=== PATIENT | female | born 1965 | race Caucasian/White ===

== ENCOUNTER 2016-07-09 15:17 | Observation (INO) | payer OTHER ==
--- NOTE | 2016-07-09 15:22 | EDPHY ---
H & P HPI/ROS: CHIEF COMPLAINT: Back pain. HISTORY OF PRESENT ILLNESS: The patient is a 50-year-old female who presents via EMS for severe lower left back pain. She was scheduled for an epidural injection today at the surgery center. She was in so much pain that she had to call the paramedics to help her into the car so that she could make it to the surgery center. When she arrived the decision was made to transport her to the hospital for treatment of intractable back pain, rather than perform the epidural injection. She has had low back pain for 3 or 4 months. She initially visited her doctor a week ago and was started on a course of oral steroids. She had an MRI taken 2 days ago that showed a disc protrusion at L3. The pain today radiates around to her groin and down her left leg. It is severe in nature and constant. It is worsened with movement. Her reports that she was unable to make it to the bathroom multiple times last night and urinated in diapers in bed. She has not had a bowel movement for at least 4 days. She denies fever. She has no history of IV drug use. She has not had recent trauma. REVIEW OF SYSTEMS: A ten point review of systems was performed and is negative with the exception of the items mentioned in the HPI. Source: Patient Exam Limitations: No limitations - Social History Additional Social History: She lives with her . 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 - Physical Exam Exam: General Appearance: Alert. Vital signs reviewed. BP 138/76. Eyes: Pupils equal and round, no conjunctival injection, no discharge. Anicteric. ENT, Mouth: Mucous membranes are moist, no oropharyngeal erythema or edema. Neck: No lymphadenopathy, supple. Respiratory: Lungs are clear to auscultation; no wheezes, rales, or rhonchi. Cardiovascular: Regular rate and rhythm; no murmur, rub, or gallop. Gastrointestinal: Abdomen is soft and nontender, no masses or organomegaly, bowel sounds normal. Rectal exam: Normal rectal tone. Skin: Warm and dry, no rashes on exposed skin, normal color. Back: Nontender to palpation over the thoracolumbar spine. No palpable muscle spasm. Extremities: No lower extremity edema, no calf tenderness or swelling. Neurological: She is alert and oriented. Sensation is intact to light touch over both lower extremities. 5/5 plantar and dorsiflexion and EHL bilaterally. Further strength testing limited due to pain. Psychiatric: Normal affect. Constitutional: Initial Vital Signs Temperature (C) 36.4 C 07/09/16 15:41 Heart Rate 72 07/09/16 15:41 Respiratory Rate 16 07/09/16 15:41 Blood Pressure 138/76 H 07/09/16 15:41 O2 Sat (%) 96 07/09/16 15:41 O2 Delivery Mode Nasal Cannula O2 (L/minute) 2 Allergies/Adverse Reactions: No Known Allergies Allergy (Unverified 08/30/10 18:43) Home Medications: Medication Instructions Recorded Aspirin EC [Aspirin EC 81 mg (*)] 81 mg PO DAILY 07/09/16 Cyclobenzaprine [Flexeril 10 MG 10 - 20 mg PO DAILY 07/09/16 (*)] Escitalopram Oxalate [Lexapro] 20 mg PO DAILY 07/09/16 Lisdexamfetamine Dimesylate 70 mg PO DAILY 07/09/16 [Vyvanse] Meloxicam 15 mg PO DAILY 07/09/16 lamOTRIGine [Lamotrigine] 200 mg PO DAILY 07/09/16 oxyCODONE/APAP 5/325 [Percocet 1 - 2 tab PO Q6H PRN 07/09/16 5/325 (*)] predniSONE [Prednisone] 20 mg PO DAILY 07/09/16 Medical Decision Making ED Course/Re-evaluation: This is a 50-year-old female who has been undergoing an outpatient evaluation of her worsening back pain. She was scheduled for an epidural injection today but was unable to have this procedure performed due to her extreme pain. I do not find signs of central cord syndrome on evaluation. She had an MRI performed within the past week and brings the CD with her. I am not recommending further imaging at this point in time. She will be seen in consultation by Neurosurgery. 1616: Consulted with Dr. Saavedra, hospitalist. He accepts admission. Dilaudid IV administered for pain. Differential Diagnosis: Back pain including but not limited to muscular pain, herniated disc, spine fracture, intra-abdominal causes and urinary tract infection. - Data Points Medications Given: Discontinued Medications Diazepam (Valium Injection) 10 mg IVP EDNOW ONE Stop: 07/09/16 17:07 Last Admin: 02/09/17 17:23 Dose: 10 mg Hydromorphone HCl (Dilaudid) 0.5 mg IVP EDNOW ONE Stop: 07/09/16 16:21 Last Admin: 07/09/16 16:31 Dose: 0.5 mg Hydromorphone HCl (Dilaudid) 0.5 mg IVP EDNOW ONE Stop: 07/09/16 16:48 Last Admin: 07/09/16 16:59 Dose: 0.5 mg Methylprednisolone Sodium Succinate (Solu-Medrol) 125 mg IVP EDNOW ONE Stop: 07/09/16 17:07 Last Admin: 07/09/16 17:52 Dose: 125 mg Departure - Departure Disposition: [facility] Inpatient Acute Clinical Impression: Back pain Qualifiers: Back pain location: low back pain Chronicity: acute Back pain laterality: left Sciatica presence: with sciatica Sciatica laterality: sciatica of left side Qualifier Code: (M54.42) Lumbago with sciatica, left side Condition: Fair Report Scribed for: Charlene Villalpando Report Scribed by: Chris Bailey Date of Report: 07/09/16 Time of Report: 15:28 Physician Review and Approval Statement: 07/09/16 15:22 Portions of this note were transcribed by the medical sales. I, Dr. Charlene Villalpando, personally performed the history, physical exam, and medical decision- making; and confirmed the accuracy of the information in the transcribed note.
[2016-07-09] MEDS ORDERED: HYDROmorphONE/DILAUDID 1 MG/ML SYR IVP ONE ×2 (16:20→16:47)
[2016-07-09] MEDS ORDERED: methylPREDNISolone SOD SUCC 125 MG/2 ML VIAL IVP ONE (17:06)
[2016-07-09] MEDS ORDERED: DIAZEPAM 10 MG/2 ML SYR IVP ONE (17:06)
[2016-07-09] MEDS ORDERED: ONDANSETRON DISINTEGRATING 4 MG TAB PO PRN (17:07)
[2016-07-09] MEDS ORDERED: LORazepam 0.5 MG TAB PO PRN (17:07)
[2016-07-09] MEDS ORDERED: HYDROmorphONE/DILAUDID 1 MG/ML SYR IVP PRN (17:07)
[2016-07-09] MEDS ORDERED: PROMETHAZINE HCL 25 MG/ML INJ IVP PRN (17:07)
[2016-07-09] MEDS ORDERED: ONDANSETRON 4 MG/2 ML VIAL IVP PRN (17:07)
[2016-07-09] MEDS ORDERED: DIAZEPAM 10 MG/2 ML SYR IVP PRN (17:12)
--- NOTE | 2016-07-09 17:51 | GHP ---
[f rep st] HISTORY AND PHYSICAL DATE OF ADMISSION: 07/09/2016 HISTORY OF PRESENT ILLNESS: Ms Lujan is a pleasant 50-year-old female with a history of low back pain that has been going on for about 3 or 4 weeks, got acutely worse a couple of weeks ago when she was doing some jump squats in preparation to be fit for cycling. She has no history of cancer, no fe chica, chills or weight loss. She does have some night sweats, but is currently going through menopaus e. As her pain was getting worse, she saw a spine physician who initially prescribed Medrol Dosepak as w ell as meloxicam, and then subsequently Flexeril. All of these were with minimal to no improvement a nd pain is actually getting worse. The last 2 days, she has essentially been bed-bound. 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 She has been in so much pain she has be en lying in bed, using diapers to urinate. She has had no fecal or urinary incontinence. She went t o get a spine injection today and was in so much pain they called an ambulance and sent her here. No injection drug use. No previous back surgery. REVIEW OF SYSTEMS: Complete 10-point review of systems conducted, negative except as in the HPI. PAST MEDICAL HISTORY: 1. Depression. 2. Low back pain. 3. Attention deficit hyperactivity disorder. ALLERGIES: No known drug allergies. HOME MEDICATIONS: Strattera, prednisone, Percocet, lorazepam, Flexeril, aspirin, Lexapro. FAMILY HISTORY: Negative for cancer. SOCIAL HISTORY: Rare alcohol. No tobacco. 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 Lives in [place]. PHYSICAL EXAM: VITAL SIGNS: Temp 36.4, blood pressure 138/76, pulse 72, breathing 16 times a minute , 96% on 4 L. GENERAL: No acute distress. Lying flat. HEENT: Sclerae anicteric. Oropharynx hernesto r. Mucous membranes moist. NECK: Supple without lymphadenopathy or JVD. LUNGS: Clear to ausculta tion bilaterally. HEART: S1, S2. ABDOMEN: Soft, nontender, nondistended. LOWER EXTREMITIES: Wit hout edema. Calves nontender. MUSCULOSKELETAL: Low back exam shows pain over her left lower back. She has a fair amount of pain radiating around her groin. She is really unable to test left leg fle xion secondary to pain, but there is some movement. Dorsiflexion and plantarflexion are intact. Sen sation is intact bilaterally. Per the ER, she had normal rectal tone. LABS: There are no labs. She has an MRI on a disc. I have discussed the case with Dr. Jose ziegler Neurosurgery as well as Dr. Charlene Villalpando. ASSESSMENT/PLAN: This is a 50-year-old female with low back pain and herniated disc. 1. Low back pain with radicular symptoms. This is consistent with the presentation of herniated L3 disc. Does not appear to be a neurosurgical emergency. At this point in time, I have written her fo r Valium. I will give her a dose of Solu-Medrol. I have called Neurosurgery to see her. I have pro vided her with oral pain medicine. 2. Attention deficit hyperactivity disorder. We will continue her Strattera when reconciled. 3. Prophylaxis. Pharmacologic prophylaxis is indicated, but will hold given the possibility of ster oid injection in the coming days. Will give her SCDs. 4. Hypoxia. This is likely mild. Will follow. She has a normal chest exam. 5. Low back pain. Secondary cause workup. Will send some labs. At this point in time, she has dominik kocytosis. We can consider for a further workup, but I do not think this represents epidural abscess given the recent imaging 2 days ago, as well as absence of fever. 6. Disposition: Observation status. /[id number]/MODL
--- NOTE | 2016-07-09 18:57 | GCON ---
[f rep st] CONSULTATION NEUROSURGERY CONSULT NOTE. DATE OF CONSULTATION: 07/09/2016 TIME SEEN: Patient was seen in the [facility] emergency department at approximately 6:00 p.m. HISTORY OF PRESENT ILLNESS: The patient is a 50-year-old otherwise relatively healthy woman who was apparently doing box jumps approximately 11 days ago when she had a sudden onset of left low back blas n. Subsequently this began to radiate around the left hip into the left groin area, and down the med ial aspect of the anterior thigh to the knee. She was seen at [facility], where she was prescribed a regimen of physical therapy and given some muscle relaxants and antiinflammatori es, as well as Percocet. The pain has become worse and worse, such that the last 2 days she has not been able to get out of bed. She did have an MRI scan last Wednesday, which shows a fairly large left L3-4 lateral disc herniation with impingement of the exiting L3 nerve root. The remainder of the MRI is fairly normal. She was scheduled for a transforaminal epidural steroid injection today, and when she attempted to go to that appointment she was not able to walk down the stairs of her house [facility] of extreme pain. Her was able to get her to that appointment eventually, but given the ext akiko amount of pain that she was having they did not do the injection and sent her to the emergency d [facility]. Here her pain is now down to a 3/10 after IV pain medications and IV steroids. We were c onsulted for further management. She denies any bowel or bladder problems. She does not have any se nsory disturbance. Her left-sided quadriceps and hip flexor strength are somewhat limited by pain. She does not have any other complaints at this time. REVIEW OF SYSTEMS: A 10-point review of systems is negative, other than as described in HPI. PAST MEDICAL HISTORY: 1. Anxiety. 2. Depression. 3. ADHD. PAST SURGICAL HISTORY: 1. Ankle surgery. 2. Tubal ligation. ALLERGIES: No known drug allergies. MEDICATIONS: 1. Lamictal. 2. Aspirin. 3. Lexapro. 4. Another medication for ADHD, which I do not know the name of. 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 She does not smoke and dri nks only social alcohol. FAMILY HISTORY: Negative for any family history of major back problems. PHYSICAL EXAM: VITAL SIGNS: Currently she has normal stable vital signs. GENERAL: She is awake, a lert and oriented x3. She is somewhat lethargic due to the pain medication, and falls asleep easily during the conversation. NEUROLOGIC/EXTREMITIES: Her cranial nerves 2-12 are grossly normal. Stren gth in the arms is grossly normal. Sensation in the arms is normal. In the lower extremities she adam s 5/5 strength of the hip flexors, knee flexors, extensors and plantar and dorsiflexion on the right side. On the left side her exam is significantly limited by pain, but she appears to have at least 4 /5 strength at the hip flexors, quadriceps, and hamstring, and 5/5 strength of the plantar and dorsif lexion. Her sensation to light touch is grossly intact. The reflexes are slightly more brisk on the right side at the knee than on the left, however, both are within normal limits. The toes are downg oing. There is no clonus. IMAGING REVIEW: MRI performed at an outpatient center approximately 2 days ago reveals a large far l ateral disc herniation at the area of the dorsal root ganglion, at L3-4 on the left with significant impingement of the exiting L3 nerve root. ASSESSMENT AND PLAN: I discussed the options at length with the patient and her . I think th at given the far lateral nature of the disc herniation there is a quite reasonable chance that she wo uld have a response to conservative management. I discussed with them the possibility of admission t o the hospital on the hospitalist service for pain control this evening. We will try to arrange a le ft L3-4 transforaminal epidural steroid injection for tomorrow morning with Radiology. After the jessica roid injection we will get her into an outpatient physical therapy program and continue with nonstero idal antiinflammatory medications, which would have the most likelihood of helping with this problem. She also may benefit from Neurontin, we could start her on Neurontin 600 mg 3 times a day and see h ow she responds to this. If she gets no relief, or the relief is short-lived, then she would certain ly be a candidate for surgery, although I did tell them that surgery for the far lateral disc herniat ion is slightly more complex than the normal intraspinal disc herniations, and carries some risk of i njury to the dorsal root ganglion which can cause neuropathic pain. They are very happy to proceed w ith conservative management at this point. We will follow closely and we can proceed with surgery if she needs it any point. The patient and her seemed to be quite happy with this plan. /[id number]/MODL
[2016-07-09] MEDS: oxyCODONE IR 5 MG TAB PO PRN (19:30)
[2016-07-09] MEDS: ACETAMINOPHEN 500 MG TAB PO SCH (21:26)
[2016-07-09] MEDS: methylPREDNISolone SOD SUCC 40 MG/ML VIAL IVP SCH (21:27)
[2016-07-09 21:36] LABS: % IMMATURE GRANULYOCYTES 1.8 % (0.0-1.1); ABSOLUTE IMMATURE GRANULOCYTES 0.23 10^3/uL (0.00-0.10); ADD DIFF? NO; ADD MORPH? NO; ADD SCAN? NO; ATYPICAL LYMPHOCYTE FLAG 0 (0-99); FRAGMENT RBC FLAG 0 (0-99); HEMATOCRIT 44.4 % (38.0-47.0); LEFT SHIFT FLG 10 (0-99); LIPEMIA HEMOLYSIS FLAG 90 (0-99); MEAN CELL HEMOGLOBIN 30.6 pg (27.9-34.1); MEAN CELL HEMOGLOBIN CONCENTR. 33.8 g/dL (32.4-36.7); MEAN CELL VOLUME 90.6 fL (81.5-99.8); MEAN PLATELET VOLUME 10.7 fL (8.7-11.7); PLATELET CLUMPS FLAG 20 (0-99); PLATELET COUNT 396 10^3/uL (150-400); RED CELL DISTRIBUTION WIDTH 12.9 % (11.5-15.2)
[2016-07-09 21:46] LABS: INR 0.97 (0.83-1.16); PROTIME(PATIENT) 12.8 SEC (12.0-15.0)
[2016-07-09 21:47] LABS: APTT 23.4 SEC (23.0-38.0)
[2016-07-09 21:52] LABS: ANION GAP 13 mEq/L (8-16); CALCIUM 10.1 mg/dL (8.5-10.4); CARBON DIOXIDE 26 mEq/l (22-31); CHLORIDE 100 mEq/L (97-110); CREATININE 0.9 mg/dL (0.6-1.0); GLOMERULAR FILTRATION RATE > 60; GLUCOSE 137 mg/dL (70-100); POTASSIUM 4.8 mEq/L (3.5-5.2); SODIUM 139 mEq/L (134-144)
[2016-07-10] MEDS: oxyCODONE IR 5 MG TAB PO PRN ×6 (02:48→23:08)
[2016-07-10] MEDS: ACETAMINOPHEN 500 MG TAB PO SCH ×3 (05:19→20:30)
[2016-07-10] MEDS: methylPREDNISolone SOD SUCC 40 MG/ML VIAL IVP SCH ×3 (05:19→20:31)
--- NOTE | 2016-07-10 07:51 | NEUSURGPN ---
Assessment/Plan: 50y/o female with lateral HNP at L3/4 and left leg radiculopathy -IR L3/4 TFESI ordered for today -Optimize pain management -PT/OT as tolerated -Discussed with Dr. Dos Santos -Please notify NS with any change in neuro/motor exam Subjective: left groin/leg pain Objective: NAD A&Ox3 MAEx4 5/5 and equal in BUE and BLE, pain limited motion with left HF. Sensation intact - Physician Discussed Patient with Dr.: Dos Santos Neurosurgery Physical Exam - Vitals, I&O, Labs I and O 07/09/16 07/10/16 07/11/16 05:59 05:59 05:59 Intake Total 500 Output Total 300 Balance 200 Weight 95.254 kg Intake: Oral (ml) 500 Output: Urine (ml) 300 Bedside Commode 300 Other: Intake Quantity Yes Sufficient Number of Voids Bedside Commode 1 Vital Signs Temp Pulse Resp BP Pulse Ox 36.6 C 66 16 121/70 H 93 07/10/16 07:27 07/10/16 07:27 07/10/16 07:27 07/10/16 07:27 07/10/16 07:27 Laboratory Results 07/09/16 21:28 07/09/16 21:28 ICD10 Worksheet Patient Problems: Problems Problem Status Diagnosed Back pain Acute
[2016-07-10] MEDS: CYCLOBENZAPRINE 10 MG TAB PO SCH (09:07)
[2016-07-10] MEDS: lamoTRIgine 100 MG TAB PO SCH (09:07)
[2016-07-10] MEDS: ESCITALOPRAM OXALATE 10 MG TAB PO SCH (09:08)
[2016-07-10] MEDS: Lisdexamfetamine Dimesylate [Vyvanse] 70 MG PO SCH (09:12)
[2016-07-10] MEDS: Meloxicam [Meloxicam] 15 MG PO SCH (09:12)
--- NOTE | 2016-07-10 14:13 | HOSPPROG ---
Hospitalist Progress Note Assessment/Plan: Patient is a 50-year-old female with a history of low back pain for approximately 3-4 weeks. It became acutely worse. She was admitted for further care. today is my 1st encounter with the patient. Chart reviewed. #. Acute low back pain with radicular symptoms * failed outpatient treatment / prescribed a Medrol Dosepak as well as Flexeril with minimal improvement * she is to get a steroid injection today with Dr. Alcantara #. leukocytosis * recheck labs in the morning #. attention deficit hyperactivity disorder * Strattera #. DVT prophylaxis * on hold for procedure #. plan. Came by to further evaluate her this afternoon. Her pain is still high and she does not feel comfortable to be discharged home at this time will evaluate in the morning Subjective: patient is only able to lying in 1 position to control her pain Objective: Vital Signs Temp Pulse Resp BP Pulse Ox 37.1 C 82 16 135/77 H 94 07/10/16 11:42 07/10/16 11:42 07/10/16 11:42 07/10/16 11:42 07/10/16 11:42 Laboratory Results 07/09/16 21:28 07/09/16 21:28 07/09/16 07/10/16 07/11/16 05:59 05:59 05:59 Intake Total 500 400 Output Total 300 375 Balance 200 25 PT 12.8 SEC (12.0-15.0) 07/09/16 21:28 INR 0.97 (0.83-1.16) 07/09/16 21:28 - Physical Exam Constitutional: uncomfortable Eyes: PERRL Ears, Nose, Mouth, Throat: hearing normal Cardiovascular: regular rate and rhythym Respiratory: no respiratory distress Skin: warm, normal color Musculoskeletal: muscular tenderness ( in the low back) Neurologic: AAOx3 Psychiatric: interacting appropriately, not anxious ICD10 Worksheet Patient Problems: Problems Problem Status Diagnosed Back pain Acute
[2016-07-10] MEDS ORDERED: NALOXONE HCL 0.4 MG/ML INJ ONE (14:24)
[2016-07-10] MEDS ORDERED: fentaNYL 100 MCG/2 ML INJ ONE (14:25)
[2016-07-10] MEDS ORDERED: LIDOCAINE 1% 30 ML SDV ONE (14:51)
[2016-07-10] MEDS ORDERED: TRIAMCINOLONE ACETONIDE 200 MG/5 ML MDV IM ONE (14:51)
[2016-07-10] MEDS ORDERED: LACTULOSE 20 GM/30 ML UDCUP PO PRN (16:31)
[2016-07-10] MEDS ORDERED: BISACODYL 10 MG SUPP PR PRN (16:31)
[2016-07-10] MEDS ORDERED: MAGNESIUM HYDROXIDE 30 ML UDCUP PO PRN (16:31)
--- NOTE | 2016-07-10 20:05 | IR ---
Left L3 Transforaminal Epidural Steroid Injection and Selective Nerve Root Block Indication: Severe left-sided leg pain that goes from lower back, to the lateral hip, wraps around t o the front of the groin, then down the medial thigh into the knee. This is L2 or L3 distribution. Review of the patient's outside MRI shows two things: A paracentral disk bulge at L3-L4, with L3 ner ve impingement, and bilateral facet arthropathy at L4-L5 and L3-L4. Otherwise, there is no central d isk herniation. No canal stenosis or significant foraminal stenosis. Informed Consent: Obtained from the patient. Risks and benefits were discussed. Cross Cutting Measure: Patient's current list of medications including all known prescriptions, over -the-counters, herbals, and vitamin/mineral/dietary supplements are reviewed. Medications' name, dos age, frequency, and route of administration are confirmed. Patient is a non-smoker. Prophylactic Antibiotic: Cefazolin was not ordered and administered for antimicrobial prophylaxis be cause it was not medically necessary. VTE Prophylaxis: There is not an order for VTE prophylaxis to be given within 24 hours of the proced ure end time. VTE prophylaxis was not given because it was not medically necessary. Technique: Patient is placed in prone position. A "timeout" procedure was performed to identify the correct patient and the correct procedure. 1% Xylocaine was used for local anesthetic. All element s of maximal sterile barrier technique, including cap, mask, sterile gown, sterile gloves, large ster ile sheet, hand hygiene, and 2% chlorhexidine for cutaneous antisepsis, followed. A 22-gauge spinal needle is inserted via intrapedicular approach into the left L3-L4 foraminal space. Contrast injection, with needle advanced medially, shows epidural space and the nerve sheath comple x. A total of 100 mg of Kenalog and 2 mL 1% Xylocaine and 1 mL 0.5% bupivacaine mixture was injected slo wly. Half of it was delivered in the epidural space, the other half in the foraminal space. With the injection, the patient had severe pain that is radiating down to the identical nerve distrib ution as her presenting pain. I suspect this is the patient's primary cause of symptoms. The patien t was very teary eyed during the entire procedure. Impression: 1. Left L3 transforaminal epidural steroid injection and selective nerve root block performed, as ab mclean reproducing presenting pain. 2. Bilateral facet arthropathy at L3-L4 and L4-L5. If it does not alleviate the patient's symptoms significantly, consider performing facet injection, as well. The above are discussed with the patient. The patient was under the impression that she had a very s ignificant disk bulge centrally, with canal compromise. We discussed that that is not the case, and the above anatomy was again reviewed with the patient. Fluoroscopy: 1.4 minutes, 3 images. Medication: Fentanyl only as the patient was not NPO.
[2016-07-10] MEDS: SENNOSIDES/DOCUSATE SODIUM TAB PO SCH (20:31)
[2016-07-11] MEDS: oxyCODONE IR 5 MG TAB PO PRN ×5 (02:01→13:41)
[2016-07-11 05:50] VITALS: RESP 16
[2016-07-11] MEDS: ACETAMINOPHEN 500 MG TAB PO SCH ×2 (05:51→13:40)
[2016-07-11] MEDS: methylPREDNISolone SOD SUCC 40 MG/ML VIAL IVP SCH (05:51)
[2016-07-11 06:21] LABS: ADD DIFF? YES; ADD MORPH? NO; ADD SCAN? NO; ATYPICAL LYMPHOCYTE FLAG 0 (0-99); FRAGMENT RBC FLAG 0 (0-99); HEMATOCRIT 40.3 % (38.0-47.0); HEMOGLOBIN 13.9 g/dL (12.6-16.3); LEFT SHIFT FLG 10 (0-99); LIPEMIA HEMOLYSIS FLAG 90 (0-99); MEAN CELL HEMOGLOBIN 31.1 pg (27.9-34.1); MEAN CELL HEMOGLOBIN CONCENTR. 34.5 g/dL (32.4-36.7); MEAN CELL VOLUME 90.2 fL (81.5-99.8); PLATELET CLUMPS FLAG 0 (0-99); PLATELET COUNT 362 10^3/uL (150-400); RED BLOOD CELL COUNT 4.47 10^6/uL (4.18-5.33); RED CELL DISTRIBUTION WIDTH 12.8 % (11.5-15.2)
[2016-07-11 07:17] LABS: LARGE PLATELETS PRESENT; MACROCYTES 1+; PLATELET ESTIMATE ADEQUATE (ADEQ)
[2016-07-11] MEDS: SENNOSIDES/DOCUSATE SODIUM TAB PO SCH (08:34)
[2016-07-11] MEDS: CYCLOBENZAPRINE 10 MG TAB PO SCH (08:35)
[2016-07-11] MEDS: ESCITALOPRAM OXALATE 10 MG TAB PO SCH (08:35)
[2016-07-11] MEDS: lamoTRIgine 100 MG TAB PO SCH (08:35)
[2016-07-11] MEDS ORDERED: POLYETHYLENE GLYCOL 3350 17 GM PKT PO SCH (09:00)
[2016-07-11] MEDS: Meloxicam [Meloxicam] 15 MG PO SCH (09:15)
[2016-07-11] MEDS: Lisdexamfetamine Dimesylate [Vyvanse] 70 MG PO SCH (09:15)
--- NOTE | 2016-07-11 09:27 | HOSPPROG ---
Hospitalist Progress Note Assessment/Plan: Patient is a 50-year-old female with a history of low back pain for approximately 3-4 weeks. It became acutely worse. #. Acute low back pain with radicular symptoms * failed outpatient treatment / prescribed a Medrol Dosepak as well as Flexeril with minimal improvement * s/p Transforaminal left epidural steroid injection * pain is better * PT to see prior to discharge * she was able to shower this morning/ walked to bathroom x 3 #. leukocytosis * recheck in OP setting * patient has been on IV steroids #. attention deficit hyperactivity disorder * Strattera #. plan. PT to see her/ reviewed her care with neurosurgery and she can f/u with them in OP if pain should persist Subjective: Allie said pain is better/ would like to see PT prior to dc. Objective: Vital Signs Temp Pulse Resp BP Pulse Ox 36.8 C 72 16 130/77 H 94 07/11/16 08:01 07/11/16 08:01 07/11/16 08:01 07/11/16 08:01 07/11/16 08:01 Laboratory Results 07/11/16 05:25 07/09/16 21:28 07/10/16 07/11/16 07/12/16 05:59 05:59 05:59 Intake Total 500 850 450 Output Total 300 775 Balance 200 75 450 PT 12.8 SEC (12.0-15.0) 07/09/16 21:28 INR 0.97 (0.83-1.16) 07/09/16 21:28 - Physical Exam Constitutional: no apparent distress, appears nourished Eyes: PERRL Ears, Nose, Mouth, Throat: hearing normal Respiratory: no respiratory distress Skin: warm, normal color Musculoskeletal: muscular tenderness Neurologic: AAOx3 Psychiatric: interacting appropriately ICD10 Worksheet Patient Problems: Problems Problem Status Diagnosed Back pain Acute
--- NOTE | 2016-07-11 10:07 | GDS ---
[f rep st] DISCHARGE SUMMARY DISCHARGE DIAGNOSES: 1. Acute low back pain with radicular symptoms. 2. Leukocytosis. 3. Attention deficit hyperactivity disorder. CONSULTATIONS: During her stay: 1. Dr. Jad Dos Santos with neurosurgery services. 2. Dr. Sheron Alcantara, with interventional services. HISTORY: Briefly, the patient is a 50-year-old female who was doing box jumps approximately 11 days ago when she had a sudden onset of low back pain that radiated to her left hip and the left groin are a. She was seen at [facility], where she was prescribed a regimen of physical th erapy and some muscle relaxants. The pain became much worse. She had a previous MRI done prior to t his admission, which showed a lateral disc herniation at the area of the dorsal root ganglion at the L3-L4 on the left with significant impingement of the exiting L3 nerve root area. Subsequently, she was seen by Dr. Alcantara, and on 07/10/2016, she had a left L3 transforaminal epidural steroid injection a nd selective nerve root block. Today, her pain is better controlled but still having some ongoing pa in. She will be discharged and follow up with Dr. Tigist Glover. HOSPITAL COURSE: 1. Acute low back pain with radicular symptoms. She failed outpatient treatment. She is status pos t transforaminal epidural steroid injection. Physical therapy will see her prior to discharge. 2. Leukocytosis. This is due to steroids. She will need to get labs checked in a week to make sure they are trending down. 3. Attention deficit hyperactivity disorder. Strattera has been resumed. PENDING LABS AND TESTS: None. CONDITION ON DISCHARGE: Stable. Blood pressure is 130/77. Respiratory rate is 16. Pulse is 72. T emperature is 36.8 Celsius. O2 sats on room air 94%. DISCHARGE MEDICATIONS: Please see the EMR. DISCHARGE INSTRUCTIONS: 1. To follow up with Dr. Glover. 2. To take it easy for the next 2 weeks. No heavy lifting greater than 10 pounds. 3. To get a repeat white blood cell count at the end of next week. 4. Do not drink or drive while on the pain medication. She will get a prescription of Oxy IR 5 mg, #20. /[id number]/MODL
--- NOTE | 2016-07-11 10:57 | NEUSURGPN ---
Assessment/Plan: 50 yo female with left anterior thigh pain and a left L3/4 far lateral HNP Had BOBBY yesterday with major improvement in her leg pain, but ongoing quad weakness requiring walker for stability Plan: DC home if cleared by PT Follow up as outpt with Dr. Dos Santos Subjective: was in shower this AM. and notes improved pain in left anterior thigh ongoing weakness in left quad Had BOBBY yesterday Objective: NEURO: CUEVAS, sens +LT subjective left quad weakness when standing requiring walker Neurosurgery Physical Exam - Vitals, I&O, Labs I and O 07/10/16 07/11/16 07/12/16 05:59 05:59 05:59 Intake Total 500 850 450 Output Total 300 775 Balance 200 75 450 Weight 95.254 kg Intake: Oral (ml) 500 850 450 Output: Urine (ml) 300 775 Bedside Commode 300 775 Other: Intake Quantity Yes Yes Sufficient Number of Voids Bedside Commode 1 2 Vital Signs Temp Pulse Resp BP Pulse Ox 36.8 C 72 16 130/77 H 94 07/11/16 08:01 07/11/16 08:01 07/11/16 08:01 07/11/16 08:01 07/11/16 08:01 Laboratory Results 07/11/16 05:25 07/09/16 21:28 ICD10 Worksheet Patient Problems: Problems Problem Status Diagnosed Back pain Acute
[2016-07-11 11:42] VITALS: BP 125/83; PULSE 78; TEMP 99; O2SAT 88
--- NOTE | 2016-07-11 14:15 | PDIAF ---
- Diagnosis Diagnosis: back pain with radiculopathy/ s/p injection Code Status: Full Code - Medication Management Discharge Medications: Medications to Continue on Transfer Aspirin EC [Aspirin EC 81 mg (*)] 81 mg PO DAILY 07/09/16 [Last Taken 07/07/16 1300mg] Cyclobenzaprine [Flexeril 10 MG (*)] 10 - 20 mg PO DAILY 07/09/16 [Last Taken ] Escitalopram Oxalate [Lexapro] 20 mg PO DAILY 07/09/16 [Last Taken 07/09/16] Lisdexamfetamine Dimesylate [Vyvanse] 70 mg PO DAILY 07/09/16 [Last Taken ] Meloxicam 15 mg PO DAILY 07/09/16 [Last Taken 07/07/16] lamOTRIGine [Lamotrigine] 200 mg PO DAILY 07/09/16 [Last Taken 07/09/16] oxyCODONE/APAP 5/325 [Percocet 5/325 (*)] 1 - 2 tab PO Q6H PRN 07/09/16 [Last Taken 07/09/16] predniSONE [Prednisone] 20 mg PO DAILY 07/09/16 [Last Taken 07/09/16] Acetaminophen [Tylenol ES 500 mg (*)] 1,000 mg PO Q8 #0 tab 07/11/16 [Last Taken Unknown] Polyethylene Glycol 3350 [Miralax 17 gm (*)] 17 gm PO DAILY #0 pkt 07/11/16 [ Last Taken Unknown] oxyCODONE IR [Oxycodone Ir (*)] 5 mg PO Q3HRS PRN #20 tab 07/11/16 [Last Taken Unknown] Discharge Medications: Refer to the Discharge Home Medication list for PRN reason. - Orders Services needed: Home Care, Physical Therapy Home Care Face to Face: I certify that this patient was under my care and that I had the required [id number] encounter meeting the encounter requirements on the discharge day. My findings support the fact that the patient is homebound as defined in CMS Chapter 7 Medicare Benefits Manual 30.1.1, The condition of the patient is such that there exists a normal inability to leave home and consequently, leaving home would require a considerable and taxing effort. Diet Recommendation: no restrictions on diet Diet Texture: Regular Texture Diet - Follow Up Care Current Providers and Referrals: Jad Dos Santos MD [Medical Doctor] - Patient,NotPresent [Unknown] - As per Instructions Nadiya Glover [Medical Doctor] -
== END 2016-07-11 14:04 | disposition home or self-care (01) ==
LOC: EDUNIT# → INTOOBSV 16:19 → F3N 16:19
PROVIDERS: ADMIT Family Medicine; ATTEND Family Medicine
PROC: 3E0S3BZ Introduction of Anesthetic Agent into Epidural Space, Percutaneous Approach (ICD-10-PCS; principal; 2016-07-09)
DX: M51.26 Other intervertebral disc displacement, lumbar region (principal); F90.0 Attention-deficit hyperactivity disorder, predominantly inattentive type; R09.02 Hypoxemia
CPT/HCPCS: 0230T; 96374; 97116; 97162; 97530; 99152; 99285; G0378; J1170; J2310; J3010; J3301

== ENCOUNTER 2016-09-25 13:01 | Emergency (ER) | payer OTHER ==
[2016-09-25] MEDS ORDERED: DEXAMETHASONE 20 MG/5 ML MDV IV ONE (13:38)
[2016-09-25] MEDS ORDERED: HYDROmorphONE/DILAUDID 1 MG/ML SYR IVP ONE (13:38)
--- NOTE | 2016-09-25 13:40 | EDPHY ---
H & P Stated Complaint: LUMBAR PAIN FLARE RADIATING DOWN BUTTOCKS, HX L3 HERNIATION HPI/ROS: CHIEF COMPLAINT: Low back pain HISTORY OF PRESENT ILLNESS: Patient complains of exacerbation of her low back pain. She has an ongoing lumbar radiculopathy of the L3 region on the left. This started June 26 from an injury. She was seen and admitted here for pain control. She was seen by Neurosurgery with multiple outpatient therapies in the interim. MRI in July revealed an L3 disc herniation and annular tear. No acute cord compression or injury. No surgical emergency at that time. She has had ongoing physical therapy, strengthening and 2 epidural steroid injections. Symptoms were improving until last Wednesday. She was out of town and picked up her grandchild when she felt a sudden exacerbation of the pain. This was Wednesday evening and Wednesday morning. The pain has been severe. She has resumed previous prescription of Percocet that she was not currently taking. Pain is intolerable to her. The pain radiates down the left buttock, anterior thigh, medial thigh on the left. It does not extend beyond the knee. There is no saddle anesthesia. No incontinence of bowel or bladder. No retention of bowel or bladder. No motor sensory changes in the right lower extremity. No paresthesia or anesthesia of the left lower extremity. No position of comfort. No other associated complaints or modifying factors. PRIOR ORTHO INJURIES: L3 herniated nucleus pulposus, L3 annular tear ESTABLISHED ORTHOPEDIST: Dr. Glover REVIEW OF SYSTEMS: Ten systems reviewed and are negative unless otherwise noted in the HPI EXAMINATION General Appearance: Alert, no distress Cardiovascular: Pulses normal throughout. Symmetric DP and PT pulses at 2+. Brisk cap refill Back: No tenderness of the cervical or thoracic region. There is mild tenderness of the lumbar region, left of midline. No crepitus, step-off or deformity. Range of motion is intact but painful. Neurological: GCS 15. A&O, sensory symmetric, strength symmetric at 5/5. Patellar reflexes are symmetric. Range of motion is symmetric in both lower extremities. Steady gait. Skin: Warm and dry, no rash Extremities: Nontender, no pedal edema Psychiatric: Mood and affect normal DIFFERENTIAL DIAGNOSES: Including but not limited to acute lumbar disc herniation, lumbar radiculopathy , sciatica, acute low back strain, acute cord compression MDM: 1:45 p.m. Acute exacerbation of lumbar radiculopathy. This is a left-sided low back pain radiating to the left anterior thigh 2 but not beyond the knee. Patellar reflexes are symmetric. Sensory intact distally. No incontinence. No evidence of acute cord compression or cauda equina. Her pain is intolerable. She is unable to weight bear or ambulate. Pain medication, steroid and Toradol had been ordered. 3:15 p.m. Patient has informed me that she is feeling significantly better. I have re- evaluated her at this time. She remains neuro intact. She does still have radicular pain but she has no sensory deficits. She has no motor deficits. She has no saddle anesthesia. She has no incontinence of bowel or bladder. No retention of bowel or bladder. MRI was ordered but she has declined. She feels that she cannot wait to have this done outpatient and has an appointment on Wednesday with her neurosurgeon. I agree with her at this time. I do not appreciate any evidence of acute cord compression or nerve surgical emergency. Her strength is symmetric 5/5 and she is ambulating without assistance. She will be discharged home with pain medication and follow up with Neurosurgery on Wednesday. We had a very detailed discussion regarding return to the emergency department precautions including saddle anesthesia, incontinence of bowel or bladder, retention of bowel or bladder, weakness or sensory changes. She is comfortable this plan and discharged home stable condition, neurovascular intact. ED Precautions: Worsening pain. Erythema, edema, cyanosis, pallor, paresthesia or anesthesia. SUPERVISION: This patient was independently evaluated without direct examination by the attending physician. Case was discussed with attending physician. Source: Patient, Old records Exam Limitations: No limitations - Personal History LMP (Females 10-55): Unknown Current Tetanus/Diphtheria Vaccine: Unsure Current Tetanus Diphtheria and Acellular Pertussis (TDAP): Unsure - Medical/Surgical History Hx Asthma: No Hx Chronic Respiratory Disease: No Hx Diabetes: No Hx Cardiac Disease: No Hx Renal Disease: No Hx Cirrhosis: No Hx Alcoholism: No Hx HIV/AIDS: No Hx Splenectomy or Spleen Trauma: No Other PMH: L3 HERNIATION. adhd. ANXIETY - Social History Smoking Status: Never smoked Constitutional: Initial Vital Signs Temperature (C) 98.2 F 09/25/16 13:09 Heart Rate 90 09/25/16 13:09 Respiratory Rate 16 09/25/16 13:09 Blood Pressure 139/104 H 09/25/16 13:09 O2 Sat (%) 95 09/25/16 13:09 O2 Delivery Mode Room Air Allergies/Adverse Reactions: No Known Allergies Allergy (Unverified 09/25/16 13:06) Home Medications: Medication Instructions Recorded Citalopram 09/25/16 Flexeril 09/25/16 LYRICA 09/25/16 Lamotrigine 09/25/16 Oxycontin 09/25/16 VYVANSE 09/25/16 oxyCODONE HCL/ACETAMINOPHEN 1 each PO Q4-6PRN PRN #20 tablet 09/25/16 [Percocet 5-325 mg Tablet] Medical Decision Making - Data Points Laboratory Results: 09/25/16 13:40 POC Hgb 14.6 gm/dL gm/dL (12.3-15.9) POC Hct 43 % % (35.5-47.5) POC Sodium 142 mEq/L mEq/L (134-144) POC Potassium 4.4 mEq/L mEq/L (3.3-5.0) POC Chloride 105 mEq/L mEq/L (96-108) POC BUN 20 mg/dL mg/dL (7-23) POC Creatinine 1.0 mg/dL mg/dL (0.6-1.2) POC Glucose 89 mg/dL mg/dL (70-100) Medications Given: Discontinued Medications Dexamethasone Sodium Phosphate (Dexamethasone) 10 mg IV EDNOW ONE Stop: 09/25/16 13:39 Last Admin: 09/25/16 14:01 Dose: 10 mg Hydromorphone HCl (Dilaudid) 1 mg IVP EDNOW ONE Stop: 09/25/16 13:39 Last Admin: 09/25/16 14:02 Dose: 1 mg Ketorolac Tromethamine (Toradol) 30 mg IVP EDNOW ONE Stop: 09/25/16 14:03 Last Admin: 09/25/16 14:02 Dose: 30 mg Point of Care Test Results: 09/25/16 13:40 POC Sodium 142 POC Potassium 4.4 POC Chloride 105 POC BUN 20 POC Creatinine 1.0 POC Glucose 89 Departure - Departure Disposition: Home, Routine, Self-Care Clinical Impression: Lumbosacral radiculopathy at L3 Condition: Good Instructions: Lumbar Disc Herniation (ED), Lumbar Radiculopathy (ED), Lower Back Exercises (ED) Additional Instructions: Follow-up with Neurosurgery. Return to ER for any worsening symptoms, saddle anesthesia, extremity weakness or numbness, incontinence of urine or bowel, retention of bowel or bladder, worsening pain Referrals: Nadiya Glover [Medical Doctor] - As per Instructions Prescriptions: oxyCODONE HCL/ACETAMINOPHEN [Percocet 5-325 mg Tablet] 1 each PO Q4-6PRN PRN # 20 tablet PRN Reason: Pain, Breakthrough
[2016-09-25] MEDS ORDERED: KETOROLAC 30 MG/1 ML SDV ONE (13:46)
[2016-09-25] MEDS ORDERED: DEXAMETHASONE 10 MG/ML VIAL ONE (13:47)
[2016-09-25] MEDS ORDERED: KETOROLAC 30 MG/1 ML SDV IVP ONE (14:02)
[2016-09-25 15:45] VITALS: BP 138/77; PULSE 75; RESP 14; TEMP 98.6; O2SAT 92
== END 2016-09-25 15:35 | disposition home or self-care (01) ==
LOC: MERGE 13:01
DX: M54.17 Radiculopathy, lumbosacral region (principal)
CPT/HCPCS: 82947-QW; 96374; J1170; J1885

== ENCOUNTER → 2017-02-18 | Outpatient (CLI) | payer OTHER | LOC: BMCIMAGING 14:04 | PROVIDERS: ATTEND Obstetrics & Gynecology | DX: Z12.31 Encounter for screening mammogram for malignant neoplasm of breast (principal) | CPT/HCPCS: G0202 ==

== ENCOUNTER → 2017-02-23 | Outpatient (CLI) | payer OTHER | LOC: BMCIMAGING 10:44 | PROVIDERS: ATTEND Family Medicine | DX: R92.8 Other abnormal and inconclusive findings on diagnostic imaging of breast (principal) | CPT/HCPCS: G0206 ==